=== PATIENT | male | born 1940 | race Caucasian/White ===

== ENCOUNTER 2024-01-27 20:15 | Emergency (ER) | payer MEDICARE, SELFPAY ==
--- NOTE | ~2024-01-27 | XR_ITS ---
EXAMINATION: XR chest 1V portable DATE: 01/27/2024 21:23 INDICATION: Pneumonia. TECHNIQUE: A single frontal view of the chest was obtained. COMPARISON: Chest 2 views 01/06/2013 FINDINGS: There is no pneumonia, pleural effusion, or pneumothorax. The heart size is normal. IMPRESSION: 1. No acute cardiopulmonary disease. Reviewed, dictated and finalized at location A. [employer]
[2024-01-27 20:34] VITALS: BP 111/64; PULSE 96; RESP 15; TEMP 36.6; O2SAT 96
[2024-01-27 21:14] LABS: Influenza A QL RT-PCR Negative (Negative); Influenza B QL RT-PCR Negative (Negative); RSV RNA, RT-PCR Positive (Negative); SARS-CoV-2 RNA PCR Negative (Negative)
--- NOTE | 2024-01-27 22:11 | ED.GENADULT ---
HPI - General Adult General Chief complaint: Upper Respiratory Infection Stated complaint: congestion in lungs Time Seen by Provider: 01/27/24 21:10 History of Present Illness HPI narrative: Patient is an 83-year-old male who presents to the emergency department this evening complaining of a cough and chest congestion for the past 2 weeks. Patient also states that he felt feverish at home but did not check his temperature. Denies any sick contacts at home. Admits that he has not had his flu vaccine this year yet but was planning on getting it this week. Patient states that he has been taking [id number] cough suppressants with some relief. Denies any chest pain or shortness of breath, any nausea vomiting or abdominal pain. Denies any urinary symptoms including dysuria or hematuria. No additional symptoms or concerns at this time. Related Data Home Medications ?Medication ?Instructions ?Recorded ?Confirmed ?Last Taken ?Type aspirin 81 mg tablet,delayed 81 mg PO DAILY 04/02/22 10/14/23 Unknown History release (Adult Aspirin Regimen) Allergies Allergy/AdvReac Type Severity Reaction Status Date / Time No Known Allergies Allergy Mild Verified 10/14/23 10:23 Review of Systems Review of Systems: All systems are reviewed and are negative unless stated otherwise in the HPI. [facility] Past Medical History Medical History Chronic kidney disease, stage 3b Unspecified mood [affective] disorder Erectile dysfunction Personal history of colonic polyps Presence of other vascular implants and grafts Peripheral vascular disease, unspecified Unspecified age-related cataract Gout, unspecified Hypertensive chronic kidney disease with stage 1 through stage 4 chronic kidney disease, or unspecified chronic kidney disease Unspecified atherosclerosis of [place] arteries of extremities, unspecified extremity Pure hypercholesterolemia, unspecified Prediabetes Atherosclerosis of aorta Surgical History Surgical History History of rectal surgery Repair of rectal fistula 06/2012 History of aorto-femoral bypass 09/1993 Social History Social History Smoking status: Former smoker Tobacco type: cigarettes Second hand tobacco smoke exposure: No Alcohol intake: current Alcohol use details: Social Substance use: never Substance use type: does not use Do You Feel Safe in your Home?: Yes Lack of Transportation: No Lack of Food: Never True Current Housing: I Have Housing Concerned About Future Housing: No Difficulty Paying Gas/Electric Bills: No Difficulty Paying for Meds: No Currently Unemployed: No Education: Bachelor's Degree Difficulty w/ Childcare or Family Care: No Living arrangements: with family Occupation/Education: retired Gender identity (if verbalized by the patient): Male Sexual Orientation (if Verbalized by the Patient): Straight or Heterosexual Spiritual care concerns: No Exam Narrative: General: Alert, awake, afebrile, in no acute distress. HEENT: PERRL, no rhinorrhea, no post nasal drip, oropharynx clear. Neck: Trachea midline, no JVD, no lymphadenopathy. Cardiovascular: Regular rate and rhythm, no murmurs, rubs or gallops, no peripheral edema. Respiratory: Clear to auscultation bilaterally, no tachypnea, no wheezing, no rhonchi, no rubs, no respiratory distress. Abdomen: Soft, nontender, nondistended, no rebound, no guarding, no peritoneal signs. Musculoskeletal: No joint swelling or deformity, normal muscle tone. Skin: No rashes or petechia, no signs of infection. Psychiatric: Alert and oriented, normal behavior and judgment for situation. Neurological: Alert and oriented to person, place, and time. Follows all commands. No focal deficits, speech is clear and fluent. Course Vital Signs Vital signs: Vital Signs Temperature 97.8 F 01/27/24 20:34 Pulse Rate 96 01/27/24 20:34 Respiratory Rate 15 01/27/24 20:34 Blood Pressure 111/64 01/27/24 20:34 Pulse Oximetry 96 01/27/24 20:34 Temperature 97.8 F 01/27/24 20:34 Pulse Rate 96 01/27/24 20:34 Respiratory Rate 15 01/27/24 20:34 Blood Pressure 111/64 01/27/24 20:34 Pulse Oximetry 96 01/27/24 20:34 Medical Decision Making MDM Narrative Medical decision making narrative: The patient was evaluated by myself in the emergency department. History is obtained from patient who is an independent historian and physical exam was performed. External medical records were reviewed at this time. Patient was administered 100 mg of oral concerning for cough. Imaging studies obtained included CXR which was independently interpreted by me revealing no acute cardiopulmonary process, which is pending final radiology interpretation. Differential diagnosis considerations include acute viral syndrome, infectious process such as pneumonia, sinusitis. Comorbidities impacting this visit include none. I have evaluated and discussed social determinants of health with the patient that could potentially impact subsequent diagnosis and treatment plans. On repeat assessment of the patient, reevaluation revealed that the patient is doing well and is in no acute distress. Patient symptoms have improved since he arrived to our emergency department. Repeat vital signs were all reviewed and noted to be stable. Differential diagnosis and treatment plan were discussed with the patient at bedside. Patient agrees with discussion and after shared medical decision making agrees with discharge. All questions were answered to the patient's satisfaction. Patient will follow up with his PCP in 3-5 days. A script for Tessalon Perles was sent to patient's pharmacy to use as needed for cough. Patient was provided with strict return precautions and instructed to return to the emergency department if any new or worsening symptoms develop. The patient was discharged in stable condition. Vital Signs Vital Signs: Vital Signs Temperature 97.8 F 01/27/24 20:34 Pulse Rate 96 01/27/24 20:34 Respiratory Rate 15 01/27/24 20:34 Blood Pressure 111/64 01/27/24 20:34 Pulse Oximetry 96 01/27/24 20:34 Temperature 97.8 F 01/27/24 20:34 Pulse Rate 96 01/27/24 20:34 Respiratory Rate 15 01/27/24 20:34 Blood Pressure 111/64 01/27/24 20:34 Pulse Oximetry 96 01/27/24 20:34 Lab Data Labs: Lab Results 01/27/24 Range/Units 20:33 Influenza A (RT-PCR) Negative (Negative) Influenza B (RT-PCR) Negative (Negative) RSV (RT-PCR) Positive A (Negative) SARS-CoV-2 RNA (RT-PCR) Negative (Negative) Discharge Plan Discharge Clinical Impression: Respiratory syncytial virus (RSV) infection Patient Disposition: Home, Self-Care Condition: Improved Instructions: Antibiotic Form, Viral Syndrome (ED) Additional Instructions: Please follow-up with your family doctor within the next 3-5 days. Maintain your oral hydration by drinking lots of fluids. You may use [id number] cough suppressants as needed. Take ibuprofen and/or Tylenol as needed for fevers. Return to the emergency department if any new or worsening symptoms develop. Patient Language: Trin[place] Prescriptions: New benzonatate 100 mg capsule 100 mg PO TID PRN (Reason: cough) Qty: 14 0RF No Action aspirin [Adult Aspirin Regimen] 81 mg tablet,delayed release (DR/EC) 81 mg PO DAILY prednisone 10 mg tablet 10 mg PO .COMPLEX Qty: 30 0RF Rx Instructions: 10 mg orally 4 tabs daily for 3 days, then 3 tabs daily for 3 days, then 2 tabs daily for 3 days, then 1 tab daily for 3 days; see taper instructions triamcinolone acetonide 0.1 % cream 1 applic topical BID Qty: 80 0RF allopurinol 300 mg tablet 300 mg PO DAILY Qty: 100 1RF atorvastatin 40 mg tablet 40 mg PO DAILY Qty: 100 1RF losartan 100 mg tablet 100 mg PO DAILY Qty: 100 1RF amlodipine 5 mg tablet 5 mg PO DAILY Qty: 100 1RF Follow-up/Referrals: Keith Espinoza MD [Primary Care Provider] - 3 Days Time of Disposition: 22:13
[2024-01-27] MEDS: BENZONATATE 100 MG CAPSULE PO (22:25)
[2024-01-27 22:26] VITALS: BP 139/94; PULSE 88; RESP 20; TEMP 36.6; O2SAT 98
== END 2024-01-27 22:30 | disposition home or self-care (01) ==
LOC: ANHED 22:51
PROVIDERS: Emergency Provider Emergency Medicine; PCP Family Medicine
DX: R05.9 Cough, unspecified (principal); B97.4 Respiratory syncytial virus as the cause of diseases classified elsewhere; Z20.822 Contact with and (suspected) exposure to COVID-19; I12.9 Hypertensive chronic kidney disease with stage 1 through stage 4 chronic kidney disease, or unspecified chronic kidney disease; N18.32 Chronic kidney disease, stage 3b; I70.0 Atherosclerosis of aorta; I70.209 Unspecified atherosclerosis of native arteries of extremities, unspecified extremity; E78.00 Pure hypercholesterolemia, unspecified; M10.9 Gout, unspecified; R73.03 Prediabetes; Z95.828 Presence of other vascular implants and grafts; Z86.0100 Personal history of colon polyps, unspecified; Z87.891 Personal history of nicotine dependence; Z79.82 Long term (current) use of aspirin; Z79.899 Other long term (current) drug therapy
CPT/HCPCS: 71045; 87637; 99283; A9270